=== PATIENT | male | born 1980 | race Caucasian/White ===

== ENCOUNTER 2019-05-31 11:13 | Emergency (ER) | payer SELFPAY ==
--- NOTE | 2019-05-31 11:30 | ED ---
GI/ HPI - HPI Summary HPI Summary: This patient is a 38 year old male presenting to [facility] with a chief complaint of GI bleed this morning. The patient states his last 2 or 3 bowel movements he has noted a lot of clotted blood when he wipes. He denies abdominal pain and constipation. He reports one episode of vomiting this morning. - History of Current Complaint Chief Complaint: EDGIBleed Stated Complaint: BLOOD IN BOWEL MOVEMENTS PER PT Hx Obtained From: Patient Onset/Duration: Started Hours Ago Timing: Lasting Hours Pain Intensity: 0 Location of Pain: None Associated Signs and Symptoms: Positive: Blood w/Stool - Allergy/Home Medications Allergies/Adverse Reactions: Allergies Allergy/AdvReac Type Severity Reaction Status Date / Time No Known Allergies Allergy Verified 05/31/19 11:18 Home Medications: Home Medications Cyanocobalamin TAB* [Vitamin B12 TAB*] 500 mcg PO DAILY 05/31/19 [History Confirmed 05/31/19] PMH/Surg Hx/FS Hx/Imm Hx Endocrine/Hematology History: Denies: Hx Diabetes Cardiovascular History: Denies: Hx Hypertension Infectious Disease History: No Infectious Disease History: Denies: Traveled Outside the [place] in Last 30 Days - Family History Known Family History: Positive: Other - Colon Cancer fathers side. - Social History Alcohol Use: Occasionally Hx Substance Use: No Hx Tobacco Use: Yes Review of Systems Positive: Vomiting, Nausea, Other - Neg: Constipation. Negative: Abdominal Pain Positive: other - Rectal bleed All Other Systems Reviewed And Are Negative: Yes Physical Exam - Summary Physical Exam Summary: VITAL SIGNS: Reviewed. GENERAL: Patient is a well-developed and nourished MALE who is lying comfortable in the stretcher. Patient is not in any acute respiratory distress. HEAD AND FACE: No signs of trauma. No ecchymosis, hematomas or skull depressions. No sinus tenderness. EYES: PERRLA, EOMI x 2, No injected conjunctiva, no nystagmus. EARS: Hearing grossly intact. Ear canals and tympanic membranes are within normal limits. MOUTH: Oropharynx within normal limits. NECK: Supple, trachea is midline, no adenopathy, no JVD, no carotid bruit, no c- spine tenderness, neck with full ROM. CHEST: Symmetric, no tenderness at palpation. LUNGS: Clear to auscultation bilaterally. No wheezing or crackles. CVS: Regular rate and rhythm, S1 and S2 present, no murmurs or gallops appreciated. ABDOMEN: Soft, non-tender. No signs of distention. No rebound, no guarding, and no masses palpated. Bowel sounds are normal. EXTREMITIES: FROM in all major joints, no edema, no cyanosis or clubbing. NEURO: Alert and oriented x 3. No acute neurological deficits. Speech is normal and follows commands. SKIN: Dry and warm. Rectal: External hemorrhoid, gross blood passively coming from the hemorrhoid. Triage Information Reviewed: Yes Vital Signs On Initial Exam: Initial Vitals Temp Pulse Resp BP Pulse Ox 98.2 F 82 16 144/95 98 05/31/19 11:14 05/31/19 11:14 05/31/19 11:14 05/31/19 11:14 05/31/19 11:14 Vital Signs Reviewed: Yes Diagnostics - Vital Signs Vital Signs Temp Pulse Resp BP Pulse Ox 05/31/19 11:14 98.2 F 82 16 144/95 98 - Laboratory Result Diagrams: 05/31/19 12:02 05/31/19 12:02 Lab Statement: Any lab studies that have been ordered have been reviewed, and results considered in the medical decision making process. GIGU Course/Dx - Course Assessment/Plan: This patient is a 24 year old female presenting to [facility] with a chief complaint of epigastric pain 10 hours ago. The patient states it was sudden onset as she was walking and collapsed on the floor in pain in a position. She took 25 mg omeprazole. She says the pain severity has lessened and currently rates it 4/10 in severity. She was seen her 2 weeks ago for the same thing but did not follow up after her visit. The patient denies fever, nausea, vomiting, and diarrhea. Labs without any significant abnormality. I discussed all the findings and test results with the patient. Patient was instructed to return to the emergency room immediately if any of the symptoms return worsens. Plan of care was discussed with the patient and understands and agrees. All questions were answered at patient satisfaction. There were no further complaints or concerns. Lung exam before discharge: CTA B/L. Good air exchange. No wheezing or crackles heard. CVS: S1 and S2 present. No murmurs appreciated. Patient is alert and oriented x 3. Patient is hemodynamically stable. Patient will be discharged home with follow up PCP in the next 2-3 days - Diagnoses Provider Diagnoses: External hemorrhoid - Physician Notifications Discussed Care Of Patient With: Benito Avendaño - GI Time Discussed With Above Provider: 13:52 Instructed by Provider To: Have Pt Call For Appt. Discharge - Sign-Out/Discharge Documenting (check all that apply): Patient Departure - Discharge Patient Received Moderate/Deep Sedation with Procedure: No - Discharge Plan Condition: Stable Disposition: HOME Prescriptions: Hydrocortisone Acetate [Anucort-Hc] 25 mg [place] TID #30 sup Patient Education Materials: Hemorrhoids (ED) Referrals: Benito Avendaño DO [Doctor of Osteopathy] - 2 Days Additional Instructions: Follow up with Dr. Avendaño. Return to ED with any new or worsening symptoms. - Billing Disposition and Condition Condition: STABLE Disposition: Home - Attestation Statements Document Initiated by Ceasar: Yes Documenting Scribe: Vipul Engle Provider For Whom Ceasar is Documenting (Include Credential): Jason Jordan MD Scribe Attestation: Vipul River scribed for Jason Jordan MD on 05/31/19 at 2002. Scribe Documentation Reviewed: Yes Provider Attestation: The documentation as recorded by the Vipul valdivia accurately reflects the service I personally performed and the decisions made by , Jason Jordan MD Status of Scribe Document: Viewed
[2019-05-31 12:20] LABS: ABS Eosinophils 0.1 10^3/ul (0-0.6); ABS Lymphocytes 1.5 10^3/ul (1.0-4.8); ABS Monocytes 0.5 10^3/ul (0-0.8); ABS Neutrophils 3.9 10^3/ul (1.5-7.7); Hematocrit 42 % (42-52); Hemoglobin 14.4 g/dL (14.0-18.0); Mean Corpuscular HGB Conc 34 g/dL (31-36); Mean Corpuscular Hemoglobin 34 pg (27-31); Mean Corpuscular Volume 100 fL (80-94); Mean Platelet Volume 6.7 fL (7.4-10.4); Platelet Count 202 10^3/uL (150-450); Red Blood Count 4.23 10^6 /uL (4.18-5.48); Red Cell Distribution Width 13 % (10-15); White Blood Count 5.9 10^3/uL (3.5-10.8)
[2019-05-31 12:27] LABS: Activated Partial Thrombo Time 33.1 seconds (26.0-38.0); INR 0.95 (0.82-1.09)
[2019-05-31 12:36] LABS: Albumin 4.1 g/dL (3.2-5.2); Albumin/Globulin Ratio 1.6 (1-3); BUN/Creatinine Ratio 15.9 (8-20); C Reactive Protein 2.16 mg/L (<8.01); Calcium 8.6 mg/dL (8.6-10.3); EGFR African American 154.5 (>60); EGFR Non-African American 127.6 (>60); Globulin 2.6 g/dL (2-4); Potassium 4.2 mmol/L (3.5-5.0); Total Bilirubin 0.6 mg/dL (0.2-1.0); Total Protein 6.7 g/dL (6.4-8.9)
[2019-05-31 15:18] VITALS: BP 0/0
== END 2019-05-31 15:17 | disposition home or self-care (01) ==
LOC: ED 11:13
DX: K64.4 Residual hemorrhoidal skin tags (principal)
CPT/HCPCS: 36415; 80053; 82270; 83605; 83690; 85025; 85610; 85730; 86140; 99283